=== PATIENT | female | born 1930 | race Caucasian/White ===

== ENCOUNTER 2016-11-06 21:08 | Emergency (ER) | payer MEDICARE ==
[~2016-11-06] VITALS: Ht 162.6 cm; Wt 60.0 kg
[~2016-11-06 21:08] MED LIST: ASPI-496 PO; CA C1TAB63 PO; DONE10TA30 PO; ESTR10TA PO; LEVO88TA4 PO; MELO7.5O PO; MULT1TAB9 PO; SENN1TAB7 PO
[2016-11-06] MEDS ORDERED: SODIUM CHLORIDE 0.9% 1,000ML IVBOLUS ONE (22:00)
[2016-11-06] MEDS ORDERED: GLUCAGON 1 MG IVPush ONE (22:00)
[2016-11-06] MEDS ORDERED: SODIUM CHLORIDE FLUSH 10ML SYR IVF ONE (22:00)
[2016-11-06] MEDS ORDERED: ONDANSETRON 2MG/ML, 2ML IVPush ONE (22:00)
[2016-11-06] MEDS ORDERED: GLUCAGON 1 MG ONE (22:15)
[2016-11-06] MEDS ORDERED: ONDANSETRON 2MG/ML, 2ML ONE (22:15)
[2016-11-06 23:02] LABS: BLOOD UREA NITROGEN 16 mg/dL (7-18)
[2016-11-06 23:03] LABS: ASPARTATE AMINO TRANSFERASE 12 U/L (15-37)
[2016-11-06 23:07] LABS: HEMOGLOBIN 15.1 g/dL (11.7-16.4)
[2016-11-06 23:47] VITALS: BP 118/78
== END 2016-11-06 23:49 | disposition home or self-care (01) ==
LOC: ED 23:08
DX: T18.108A Unspecified foreign body in esophagus causing other injury, initial encounter (principal); E78.5 Hyperlipidemia, unspecified; E03.9 Hypothyroidism, unspecified; I25.10 Atherosclerotic heart disease of native coronary artery without angina pectoris; Z90.49 Acquired absence of other specified parts of digestive tract; Z90.710 Acquired absence of both cervix and uterus; Z88.0 Allergy status to penicillin; X58.XXXA Exposure to other specified factors, initial encounter; Y93.89 Activity, other specified; Y92.89 Other specified places as the place of occurrence of the external cause; Y99.8 Other external cause status
CPT/HCPCS: 36415; 71010; 80053; 83690; 83880; 85025; 93005; 96361; 96374; 96375; 99285; J1610; J2405; J7030

== ENCOUNTER → 2016-11-25 | Outpatient (CLI) | payer MEDICARE | END | disposition home or self-care (01) | LOC: STAR 10:38 | PROVIDERS: ATTEND Surgery | DX: Z02.9 Encounter for administrative examinations, unspecified (principal) ==

== ENCOUNTER 2016-12-01 11:02 | Day surgery (SDC) | payer MEDICARE ==
[~2016-12-01] VITALS: Ht 162.6 cm; Wt 59.0 kg
[~2016-12-01 11:02] MED LIST changes: +BUPIVACAINE/PF-EPI 0.5% 1:200K ONE; +ISOSULFAN BLUE 10 MG/ML, 5ML IV ONE
[2016-12-01 11:31] VITALS: BP 129/78
[2016-12-01] MEDS ORDERED: LACTATED RINGERS 1,000 ML IV SCH (12:02)
[2016-12-01] MEDS ORDERED: OXYcodone/APAP 5/325MG TABLET PO PRN (12:30)
[2016-12-01] MEDS ORDERED: ONDANSETRON 2MG/ML, 2ML IVPush PRN ×2 (12:30→15:00)
[2016-12-01] MEDS ORDERED: HYDROmorphone 2 MG/ML, 1ML IVPush PRN (12:30)
[2016-12-01] MEDS ORDERED: HEPARIN 5,000 UNITS/ML, 1ML SQ STA (13:16)
[2016-12-01] MEDS ORDERED: ACETAMINOPHEN 500 MG TABLET PO STA (13:16)
[2016-12-01] MEDS ORDERED: FENTANYL PF 250 MCG/5ML ONE (14:01)
[2016-12-01] MEDS ORDERED: CEFAZOLIN 1,000 MG ONE (14:09)
[2016-12-01] MEDS ORDERED: ONDANSETRON 2MG/ML, 2ML ONE (14:09)
[2016-12-01] MEDS ORDERED: PROPOFOL 10 MG/ML, 20ML ONE (14:09)
[2016-12-01] MEDS ORDERED: EPHEDRINE 50 MG/ML, 1ML ONE (14:09)
[2016-12-01] MEDS ORDERED: LIDOCAINE 1%, 20ML ONE (14:16)
[2016-12-01] MEDS ORDERED: SODIUM BICARBONATE 4.2%, 5ML ONE (14:16)
[2016-12-01] MEDS ORDERED: LABETALOL 5MG/ML, 20ML IV PRN (15:00)
[2016-12-01] MEDS ORDERED: hydrALAzine 20 MG/ML, 1ML IV PRN (15:00)
[2016-12-01] MEDS ORDERED: OXYcodone 5 MG/5 ML ORAL.SOL UDC PO PRN (15:00)
[2016-12-01] MEDS ORDERED: HYDROmorphone 1 MG/ML, 1ML IV PRN (15:00)
[2016-12-01] MEDS ORDERED: ACETAMINOPHEN 650 MG/20.3 ML UDC ONE (15:37)
[2016-12-01] MEDS ORDERED: FENTANYL PF 100 MCG/2ML ONE (15:38)
[2016-12-01] MEDS ORDERED: OXYcodone 5 MG/5 ML ORAL.SOL UDC ONE (15:38)
[2016-12-01] MEDS: FENTANYL PF 100 MCG/2ML IV PRN ×2 (15:45→15:59)
== END 2016-12-01 17:55 | disposition home or self-care (01) ==
LOC: OUT 11:02 → EDSTATUS 15:00 → OUT 17:55
PROVIDERS: ATTEND Surgery
DX: C50.411 Malignant neoplasm of upper-outer quadrant of right female breast (principal); E03.9 Hypothyroidism, unspecified; M19.90 Unspecified osteoarthritis, unspecified site; M81.0 Age-related osteoporosis without current pathological fracture; F03.90 Unspecified dementia, unspecified severity, without behavioral disturbance, psychotic disturbance, mood disturbance, and anxiety; Z90.49 Acquired absence of other specified parts of digestive tract; Z90.710 Acquired absence of both cervix and uterus; Z83.3 Family history of diabetes mellitus; Z82.49 Family history of ischemic heart disease and other diseases of the circulatory system; Z80.0 Family history of malignant neoplasm of digestive organs
CPT/HCPCS: 19281; 19301; 38525; 38792; 88305; 88307; 88331; A9541; C1729; J0690; J1644; J2405; J2704; J3010; J3490; J7120

== ENCOUNTER → 2017-12-03 | Outpatient (CLI) | payer MEDICARE ==
[~2017-12-03] MED LIST changes: -BUPIVACAINE/PF-EPI 0.5% 1:200K ONE; -DONE10TA30 PO; +DONE10TA56 PO; -ISOSULFAN BLUE 10 MG/ML, 5ML IV ONE
== END ==
LOC: CFH 10:55
PROVIDERS: ATTEND Internal Medicine Hematology & Oncology
DX: Z12.31 Encounter for screening mammogram for malignant neoplasm of breast (principal); Z85.3 Personal history of malignant neoplasm of breast
CPT/HCPCS: 77067

== ENCOUNTER 2018-12-06 10:26 | Outpatient (CLI) | payer MEDICARE ==
[~2018-12-06 10:26] MED LIST changes: +SENN-177 PO; -SENN1TAB7 PO
== END 2018-12-06 23:59 | disposition home or self-care (01) ==
LOC: CFH 10:26
PROVIDERS: ATTEND Internal Medicine Hematology & Oncology
DX: Z12.31 Encounter for screening mammogram for malignant neoplasm of breast (principal)
CPT/HCPCS: 77067

== ENCOUNTER 2019-02-28 21:37 | Emergency (ER) | payer MEDICARE ==
[~2019-02-28] VITALS: Ht 157.5 cm; Wt 45.9 kg
[2019-03-01 00:22] VITALS: BP 111/52
== END 2019-03-01 00:43 | disposition home or self-care (01) ==
LOC: ED 22:59
DX: R11.2 Nausea with vomiting, unspecified (principal); R10.30 Lower abdominal pain, unspecified; E78.5 Hyperlipidemia, unspecified; I25.10 Atherosclerotic heart disease of native coronary artery without angina pectoris; E03.9 Hypothyroidism, unspecified; F03.90 Unspecified dementia, unspecified severity, without behavioral disturbance, psychotic disturbance, mood disturbance, and anxiety; R09.89 Other specified symptoms and signs involving the circulatory and respiratory systems
CPT/HCPCS: 36415; 74177; 80053; 81001; 83690; 85025; 87086; 93005; 99284; Q9967

== ENCOUNTER 2019-07-28 21:57 | Emergency (ER) | payer MEDICARE ==
[~2019-07-28] VITALS: Ht 157.5 cm; Wt 46.0 kg
[~2019-07-28 21:57] MED LIST changes: +CALC-116 PO
[2019-07-28 22:03] VITALS: BP 133/70
--- NOTE | 2019-07-28 22:03 | NUR ---
89Y F BIB EMS FROM NURSING HOME, PT WAS PUT TO BED AROUND 1999 AND PT WAS FOUND ON THE FLOOR WITH A LAC TO BACK OF THE HEAD AROUND 2139, PT HAS HX DEMENTIA AND DOES NOT KNOW WHAT HAPPENED. STS PT IS AT BASELINE MENTATION. PT CONNECTED TO ALL MONITORING VSS, CALL LIGHT IN REACH
--- NOTE | 2019-07-28 22:12 | NUR ---
MD AT BEDSIDE TO ASSESS PT
--- NOTE | 2019-07-28 22:25 | NUR ---
XRAY AT BEDSIDE
[2019-07-28] MEDS ORDERED: LIDOCAINE 2%, 20ML INFIL ONE (22:30)
--- NOTE | 2019-07-28 22:30 | NUR ---
NASIR [phone] HOME, [phone] CELL. CALL WHEN PT IS DC
[2019-07-28] MEDS ORDERED: LIDOCAINE-MPF 1%, 5ML ONE (22:33)
--- NOTE | 2019-07-28 22:35 | NUR ---
PT TO CT
[2019-07-28] MEDS ORDERED: LIDOCAINE-MPF 1%, 5ML INFIL ONE (23:00)
[2019-07-28 23:01] LABS: BASOPHILS % (AUTO) 0 % (0-1); EOSINOPHILS # (AUTO) 0.23 x10^3/uL (0-0.4); EOSINOPHILS % (AUTO) 2 % (1-7); LYMPHOCYTES # (AUTO) 1.08 x10^3/uL (1-3.4); LYMPHOCYTES % (AUTO) 8 % (22-44); MD NO; MEAN CORPUSCULAR HEMOGLOBIN 30.4 pg (27.0-34.8); MEAN CORPUSCULAR HGB CONC 32.9 g/dL (32.4-35.8); MEAN CORPUSCULAR VOLUME 92.5 fL (80-100); MEAN PLATELET VOLUME 8.5 fL (7.4-10.4); MONOCYTES # (AUTO) 0.24 x10^3/uL (0.2-0.8); MONOCYTES % (AUTO) 2 % (2-9); NEUTROPHILS # (AUTO) 11.62 x10^3/uL (1.8-6.8); NEUTROPHILS % (AUTO) 88 % (42-75); PLATELET COUNT 270 x10^3/uL (130-400); RED BLOOD COUNT 4.16 x10^6/uL (3.82-5.3)
--- NOTE | 2019-07-28 23:07 | NUR ---
PA AT BEDSIDE FOR LAC CLOSURE
[2019-07-28 23:13] LABS: ALBUMIN 3.2 g/dL (3.4-5.0); ANION GAP 4 mmol/L (5-15); CALCIUM 9.1 mg/dL (8.5-10.1); CHLORIDE 107 mmol/L (98-107)
[2019-07-28] MEDS ORDERED: DIPH,PERTUSS(ACELL),TET VAC/PF 0.5 ML IM-VACC ONE (23:30)
== END 2019-07-29 00:20 | disposition home or self-care (01) ==
LOC: ED 22:22
DX: S06.0X9A Concussion with loss of consciousness of unspecified duration, initial encounter (principal); S01.01XA Laceration without foreign body of scalp, initial encounter; G30.1 Alzheimer's disease with late onset; F02.80 Dementia in other diseases classified elsewhere, unspecified severity, without behavioral disturbance, psychotic disturbance, mood disturbance, and anxiety; I10 Essential (primary) hypertension; E78.5 Hyperlipidemia, unspecified; E03.9 Hypothyroidism, unspecified; I25.10 Atherosclerotic heart disease of native coronary artery without angina pectoris; Z90.49 Acquired absence of other specified parts of digestive tract; Z90.710 Acquired absence of both cervix and uterus; Z90.89 Acquired absence of other organs; W01.0XXA Fall on same level from slipping, tripping and stumbling without subsequent striking against object, initial encounter; Y93.89 Activity, other specified; Y92.098 Other place in other non-institutional residence as the place of occurrence of the external cause; Y99.8 Other external cause status
CPT/HCPCS: 12031; 36415; 70450; 72125; 80048; 82040; 85025; 93005; 99284